=== PATIENT | male | born 1970 | race Caucasian/White ===

== ENCOUNTER → 2020-06-15 10:13 | Outpatient (CLI) | payer OTHER, SELFPAY ==
[2020-06-15 12:10] LABS: Add Manual Diff / Slide Review NO; Basophils Absolute Auto 100 /uL (0-100); Basophils Percent Auto 1.7 % (0-2); Eosinophils Absolute Auto 100 /uL (0-450); Eosinophils Percent Auto 1.7 % (2-4); Hematocrit 40.2 % (41-53); Hemoglobin 13.3 g/dL (13.5-17.5); Lymphocytes Absolute Auto 1300 /uL (1100-4500); Lymphocytes Percent Auto 37.3 % (25-40); Mean Corpuscular HGB Conc 33.2 % (30-36); Mean Corpuscular Hemoglobin 29.4 PG (26-34); Mean Corpuscular Volume 88.6 fL (80-100); Monocytes Absolute Auto 300 /uL (0-900); Monocytes Percent Auto 9.7 % (3-14); Neutrophils Absolute Auto 1700 /uL (1500-7000); Neutrophils Percent Auto 49.6 % (50-75); Platelet Count 195 X10^3/uL (150-400); Red Blood Cell Count 4.54 X10^6/uL (4.5-5.9); Red Cell Distribution Width 13.4 % (11.6-14.8); White Blood Cell Count 3.4 X10^3/uL (4.5-11.0)
[2020-06-15 12:19] LABS: Hemoglobin A1C% w Est Avg Glu 5.5 % (4.0-6.0)
[2020-06-15 12:35] LABS: Alanine Aminotransferase 34 IU/L (<50); Albumin 4.3 g/dL (3.5-5.0); Albumin Globulin Ratio 1.3 (1.0-2.8); Alkaline Phosphatase 69 U/L (38-126); Aspartate Aminotransferase 39 IU/L (17-59); BUN Creatinine Ratio 17.2 (6-22); Bilirubin Total 0.3 mg/dL (0.2-1.3); Blood Urea Nitrogen 15 mg/dL (9-20); Calcium 9.2 mg/dL (8.4-10.2); Carbon Dioxide 32 mmol/L (22-32); Chloride 104 mmol/L (98-107); Cholesterol 202 mg/dL (140-199); Estimated Glomerular Filt Rate > 60.0 mL/min (>60); Globulin 3.4 g/dL (1.7-4.1); Glucose 101 mg/dL (70-100); HDL Cholesterol 45 mg/dL (40-60); HEMOLYSIS < 15 (0-50); LDL Cholesterol Calculated 126 mg/dL (<100); Potassium 4.6 mmol/L (3.4-5.1); Sodium 140 mmol/L (137-145); Total Protein 7.7 g/dL (6.3-8.2); Triglycerides 155 mg/dL (35-150)
[2020-06-15 13:17] LABS: TSH w/ Reflex to FT4 1.23 uIU/mL (0.47-4.68)
== END ==
PROVIDERS: PCP Family Medicine; Referring Provider Family Medicine; Visit Provider Family Medicine
DX: Z00.00 Encounter for general adult medical examination without abnormal findings (principal); E66.9 Obesity, unspecified; Z12.5 Encounter for screening for malignant neoplasm of prostate
CPT/HCPCS: 36415; 80053; 80061; 83036; 84153; 84443; 85025

== ENCOUNTER → 2021-04-02 08:04 | Outpatient (CLI) | payer OTHER, SELFPAY ==
[2021-04-02 09:23] LABS: Add Manual Diff / Slide Review NO; Basophils Absolute Auto 100 /uL (0-100); Basophils Percent Auto 1.7 % (0-2); Eosinophils Absolute Auto 100 /uL (0-450); Eosinophils Percent Auto 2.2 % (2-4); Hematocrit 39.3 % (41-53); Hemoglobin 13.1 g/dL (13.5-17.5); Lymphocytes Absolute Auto 1700 /uL (1100-4500); Mean Corpuscular HGB Conc 33.3 % (30-36); Mean Corpuscular Hemoglobin 30.2 PG (26-34); Mean Corpuscular Volume 90.6 fL (80-100); Monocytes Absolute Auto 300 /uL (0-900); Monocytes Percent Auto 6.8 % (3-14); Neutrophils Absolute Auto 2500 /uL (1500-7000); Neutrophils Percent Auto 53.3 % (50-75); Platelet Count 194 X10^3/uL (150-400); Red Blood Cell Count 4.34 X10^6/uL (4.5-5.9); Red Cell Distribution Width 13.5 % (11.6-14.8); White Blood Cell Count 4.7 X10^3/uL (4.5-11.0)
[2021-04-02 09:26] LABS: Alanine Aminotransferase 25 IU/L (<50); Albumin 4.1 g/dL (3.5-5.0); Albumin Globulin Ratio 1.5 (1.0-2.8); Alkaline Phosphatase 65 U/L (38-126); Aspartate Aminotransferase 30 IU/L (17-59); BUN Creatinine Ratio 20.9 (6-22); Bilirubin Total 0.3 mg/dL (0.2-1.3); Blood Urea Nitrogen 19 mg/dL (9-20); Calcium 9.1 mg/dL (8.4-10.2); Carbon Dioxide 31 mmol/L (22-32); Chloride 102 mmol/L (98-107); Estimated Glomerular Filt Rate > 60.0 mL/min (>60); Globulin 2.7 g/dL (1.7-4.1); Glucose 103 mg/dL (70-100); HEMOLYSIS < 15 (0-50); Iron 53 ug/dL (49-181); Potassium 4.6 mmol/L (3.4-5.1); Sodium 139 mmol/L (137-145); Total Protein 6.8 g/dL (6.3-8.2)
[2021-04-02 09:40] LABS: Percent Iron Saturation 17 % (20-50); Total Iron Binding Capacity 309 ug/dL (261-462); Transferrin 255 mg/dL (206-381)
== END ==
PROVIDERS: PCP Family Medicine; Referring Provider Family Medicine; Visit Provider Family Medicine
DX: Z00.00 Encounter for general adult medical examination without abnormal findings (principal); D64.9 Anemia, unspecified; E78.5 Hyperlipidemia, unspecified
CPT/HCPCS: 36415; 80053; 83540; 83550; 85025

== ENCOUNTER → 2021-11-27 07:01 | Outpatient (CLI) | payer BC, SELFPAY ==
[2021-11-27 08:05] LABS: Add Manual Diff / Slide Review NO; Basophils Absolute Auto 100 /uL (0-100); Basophils Percent Auto 1.3 % (0-2); Eosinophils Absolute Auto 100 /uL (0-450); Hematocrit 41.8 % (41-53); Hemoglobin 14.1 g/dL (13.5-17.5); Lymphocytes Absolute Auto 1900 /uL (1100-4500); Lymphocytes Percent Auto 39.7 % (25-40); Mean Corpuscular HGB Conc 33.9 % (30-36); Mean Corpuscular Hemoglobin 30.3 PG (26-34); Mean Corpuscular Volume 89.5 fL (80-100); Monocytes Absolute Auto 400 /uL (0-900); Monocytes Percent Auto 8.1 % (3-14); Neutrophils Absolute Auto 2400 /uL (1500-7000); Neutrophils Percent Auto 48.9 % (50-75); Platelet Count 178 X10^3/uL (150-400); Red Blood Cell Count 4.67 X10^6/uL (4.5-5.9); Red Cell Distribution Width 13.5 % (11.6-14.8); White Blood Cell Count 4.8 X10^3/uL (4.5-11.0)
[2021-11-27 08:12] LABS: HEMOLYSIS < 15 (0-50); Iron 92 ug/dL (49-181)
[2021-11-27 08:15] LABS: Hemoglobin A1C% w Est Avg Glu 5.3 % (4.0-6.0)
[2021-11-27 08:16] LABS: Alanine Aminotransferase 27 IU/L (<50); Albumin 4.4 g/dL (3.5-5.0); Albumin Globulin Ratio 1.5 (1.0-2.8); Alkaline Phosphatase 53 U/L (38-126); Aspartate Aminotransferase 32 IU/L (17-59); BUN Creatinine Ratio 17.3 (6-22); Bilirubin Total 0.4 mg/dL (0.2-1.3); Blood Urea Nitrogen 17 mg/dL (9-20); Calcium 8.8 mg/dL (8.4-10.2); Carbon Dioxide 27 mmol/L (22-32); Chloride 107 mmol/L (98-107); Cholesterol 200 mg/dL (140-199); Estimated Glomerular Filt Rate > 60 mL/min (>60); Glucose 122 mg/dL (70-100); HDL Cholesterol 56 mg/dL (40-60); HEMOLYSIS < 15 (0-50); LDL Cholesterol Calculated 120 mg/dL (<100); Potassium 4.2 mmol/L (3.4-5.1); Sodium 139 mmol/L (137-145); Total Protein 7.4 g/dL (6.3-8.2); Triglycerides 118 mg/dL (35-150)
[2021-11-27 08:25] LABS: Percent Iron Saturation 29 % (20-50); Total Iron Binding Capacity 316 ug/dL (261-462); Transferrin 223 mg/dL (206-381)
== END ==
PROVIDERS: PCP Family Medicine; Referring Provider Family Medicine; Visit Provider Family Medicine
DX: Z00.00 Encounter for general adult medical examination without abnormal findings (principal); E66.9 Obesity, unspecified; E78.5 Hyperlipidemia, unspecified; R73.03 Prediabetes
CPT/HCPCS: 36415; 80053; 80061; 83036; 83540; 83550; 85025

== ENCOUNTER → 2022-01-27 11:59 | Outpatient (CLI) | payer BC, SELFPAY ==
[2022-01-27 14:29] LABS: COVID19 -Nasal RAPID Negative (Negative)
== END ==
PROVIDERS: PCP Family Medicine; Visit Provider Surgery
DX: Z01.812 Encounter for preprocedural laboratory examination (principal); Z20.822 Contact with and (suspected) exposure to COVID-19
CPT/HCPCS: 87635; C9803

== ENCOUNTER 2022-01-28 08:59 | Day surgery (SDC) | payer BC, SELFPAY ==
[2022-01-28 09:12] VITALS: BP 136/86; PULSE 57; RESP 16; TEMP 36.4; O2SAT 100; BMI 36.3
[2022-01-28] MEDS: LACTATED RINGERS 1,000 ML 200 ML IV (09:27)
--- NOTE | 2022-01-28 10:11 | PM.HP.1 ---
History of Present Illness History of Present Illness Date Patient Seen: 01/28/22 Time Patient Seen: 10:12 Chief complaint: SCREENING COLONOSCOPY Narrative: The patient presents for colorectal screening. They have never had any previous examination for such. No personal or family history of colon cancer. On further history denies any recent gastrointestinal symptoms. No nausea, vomiting, abdominal pain, loss of appetite, unexplained weight loss, change in bowel habits, diarrhea, constipation, melena, hematochezia, or bright red blood per rectum. Patient History Medical History Anemia Hyperglycemia Hyperlipidemia Obesity (BMI 30.0-34.9) Sleep apnea Well adult exam Surgical History [place] teeth removed Family & Social History Family History Mother Cancer Social History: household members spouse Tobacco & Substance use: Smoking Status Never smoker alcohol intake current alcohol intake frequency a few times a week Substance Use Type does not use Meds Home Medications and Allergies Home Medications Medication Instructions Recorded Confirmed Type sodium,potassium,mag sulfates 17.5 See Rx Instructions PO .COMPLEX 01/15/22 Rx gram-3.13 gram-1.6 gram oral soln #354 mL (Suprep Bowel Prep Kit) ergocalciferol (vitamin D2) 10 mcg 10 mcg PO DAILY 01/28/22 01/28/22 History (400 unit) tablet ferrous sulfate 325 mg (65 mg 325 mg PO DAILY 01/28/22 01/28/22 History iron) tablet (Iron (ferrous sulfate)) fiber cap PO 01/28/22 History glucosamine sulfate 750 mg tablet 1,500 mg PO DAILY 01/28/22 01/28/22 History lactobacillus combination no.4 3 01/28/22 History billion cell capsule (Probiotic) magnesium chloride 64 mg 64 mg PO DAILY 01/28/22 01/28/22 History (magnesium chloride) tablet,delayed release (Mag 64) multivitamin 1 tab PO DAILY 01/28/22 01/28/22 History omega-3 fatty acids PO 01/28/22 History Allergies Allergy/AdvReac Type Severity Reaction Status Date / Time No Known Drug Allergies Allergy Verified 01/28/22 09:42 Exam Vital Signs (past 8 hours): - 01/28/22 09:12 Temperature 97.6 F Pulse Rate 57 L Respiratory Rate 16 Blood Pressure 136/86 Pulse Oximetry 100 Oxygen Delivery Method Room Air Oxygen Delivery Method Room Air Narrative Exam Narrative: General adult male alert oriented no acute distress Chest nonlabored respirations Abdomen soft nontender nondistended Assessment & Plan Assessment & Plan narrative: The patient requires colorectal screening and colonoscopy is recommended. Technical details were discussed. Risks, benefits, alternatives explained. Risks including but not limited to myocardial infarction, aspiration, bleeding, pain, missed lesion, incomplete examination, need for further radiographic studies, colonic perforation, and need for major abdominal surgery were discussed. All questions were answered to their satisfaction, and they are in agreement with this plan. Time Spent With Patient Critical Care time: I spent a total of [] minutes of critical care time on this patient's care today; this time is exclusive of procedural time.
[2022-01-28 10:12] VITALS: BMI 36.3
[2022-01-28] MEDS: fentaNYL 250 MCG/5 ML INJ 100 MCG IV (10:28)
[2022-01-28] MEDS: MIDAZOLAM 5 MG/5 ML VIAL IV (10:28)
--- NOTE | 2022-01-28 10:40 | PM.OP.COLON ---
Operative Date/Time/Diagnoses Date of procedure: 01/28/22 Time of procedure: 10:41 Pre-op diagnosis: Screening colonoscopy Post-op diagnosis: same Procedure & Clinicians Study performed: Colonoscopy Same procedure as scheduled: Yes Indications: Screening Surgeon: Ramses Jackson Procedure Notes Procedure in detail: Medications: Conscious sedation using 5 mg IV midazolam and 100 mcg IV of fentanyl The history and physical was performed/updated and the patient is ASA class is 2. The procedure was discussed in detail with the patient. Potential risks complications including infection, bleeding, missed diagnosis, perforation, need for surgery, and were explained. Their questions were answered and informed consent was obtained. Patient was brought to the procedure room and placed standard monitoring equipment. The patient's vital signs were monitored continuously throughout the entire procedure. Prior to starting time-out was performed. The patient was placed in the left lateral recumbent position. Procedural sedation was administered. Examination began with a thorough inspection of the perianal area there was no evidence of fissures, fistulae, external hemorrhoids or cutaneous malignancy. The colonoscopy scope was then placed into the anal canal and was advanced to the cecum, which was identified by the ileocecal valve, the appendiceal orifice and the confluence of the taenia. The scope was then slowly withdrawn examining colon thoroughly in all directions, irrigating it of any residual stool. FINDINGS 1. Normal healthy colon 2. No masses or polyps The patient tolerated the procedure well. They will be discharged once criteria are met. The prep was of good/excellent quality. The withdrawl time was 7 minutes. The sedation time was 14 minutes. Specimen(s): none sent Complications: none Impression: Normal colonoscopy Post-procedure Recommendations: Colonoscopy in 10 years Disposition: same day surgery
[2022-01-28 10:46] VITALS: BP 108/68; PULSE 48; RESP 13; TEMP 36.4; O2SAT 94
--- NOTE | 2022-01-28 10:47 | PM.PREOP ---
Pre-operative Note Interval Note History & Physical reviewed/Exam performed by Physician: Yes Changes to H&P: No
[2022-01-28 10:53] VITALS: BP 104/71; PULSE 65; RESP 17; O2SAT 94
[2022-01-28 10:56] VITALS: BP 104/68; PULSE 60; RESP 14; TEMP 36.6; O2SAT 96
[2022-01-28 10:58] VITALS: BP 104/68; PULSE 60; RESP 16; TEMP 36.4; O2SAT 96
--- NOTE | 2022-01-28 10:58 | SUR.PHASEII ---
Pt to [facility] in [facility]. SBAR.
[2022-01-28 11:04] VITALS: BP 100/70; PULSE 53; RESP 16; O2SAT 96
== END 2022-01-28 11:13 | disposition home or self-care (01) ==
PROVIDERS: PCP Family Medicine; Referring Provider Surgery; Visit Provider Surgery
PROC: 0DJD8ZZ Inspection of Lower Intestinal Tract, Via Natural or Artificial Opening Endoscopic (ICD-10-PCS; CPT 45378; principal; 2022-01-28 10:00)
DX: Z12.11 Encounter for screening for malignant neoplasm of colon (principal); D64.9 Anemia, unspecified; E78.5 Hyperlipidemia, unspecified; E66.9 Obesity, unspecified; G47.30 Sleep apnea, unspecified; Z68.36 Body mass index [BMI] 36.0-36.9, adult
CPT/HCPCS: G0121; 99152; J2250; J3010

== ENCOUNTER 2022-07-20 15:10 | Emergency (ER) | payer BC, SELFPAY ==
[2022-07-20 15:16] VITALS: BP 185/95; PULSE 72; RESP 18; TEMP 36.6; O2SAT 99; BMI 36.9
--- NOTE | 2022-07-20 15:23 | DI.RAD.S_ITS ---
PROCEDURE: XR CHEST 1V INDICATIONS: chest pain TECHNIQUE: One view of the chest was acquired. COMPARISON: None. FINDINGS: Surgical changes and devices: None. Lungs and pleura: Lungs are clear. No pleural effusions or pneumothorax. Mediastinum: Mediastinal contours appear normal. Heart size is normal. Bones and chest wall: No suspicious bony lesions. Overlying soft tissues appear unremarkable. IMPRESSION: No acute cardiopulmonary findings Approved by: Brian Grey M.D. on 07/20/2022 at 15:40
[2022-07-20 15:41] LABS: Add Manual Diff / Slide Review NO; Basophils Absolute Auto 100 /uL (0-100); Basophils Percent Auto 1.4 % (0-2); Eosinophils Absolute Auto 0 /uL (0-450); Eosinophils Percent Auto 0.5 % (2-4); Hematocrit 41.3 % (41-53); Hemoglobin 13.9 g/dL (13.5-17.5); Lymphocytes Absolute Auto 1800 /uL (1100-4500); Lymphocytes Percent Auto 25.1 % (25-40); Mean Corpuscular HGB Conc 33.5 % (30-36); Mean Corpuscular Hemoglobin 29.8 PG (26-34); Mean Corpuscular Volume 88.9 fL (80-100); Monocytes Absolute Auto 400 /uL (0-900); Monocytes Percent Auto 5.1 % (3-14); Neutrophils Absolute Auto 4700 /uL (1500-7000); Neutrophils Percent Auto 67.9 % (50-75); Platelet Count 207 X10^3/uL (150-400); Red Blood Cell Count 4.65 X10^6/uL (4.5-5.9); Red Cell Distribution Width 13.5 % (11.6-14.8)
[2022-07-20 15:45] LABS: Prothrombin Time 11.8 SECONDS (10.1-12.7)
[2022-07-20 15:48] LABS: PTT Partial Thromboplastin Tim 33 SECONDS (26-36)
[2022-07-20 15:50] LABS: Alanine Aminotransferase 43 IU/L (<50); Albumin 4.5 g/dL (3.5-5.0); Albumin Globulin Ratio 1.3 (1.0-2.8); Alkaline Phosphatase 65 U/L (38-126); Aspartate Aminotransferase 40 IU/L (17-59); BUN Creatinine Ratio 12.2 (6-22); Bilirubin Total 0.4 mg/dL (0.2-1.3); Blood Urea Nitrogen 11 mg/dL (9-20); Calcium 9.1 mg/dL (8.4-10.2); Carbon Dioxide 27 mmol/L (22-32); Chloride 104 mmol/L (98-107); Creatine Kinase 275 U/L (55-170); Estimated Glomerular Filt Rate > 60 mL/min (>60); Globulin 3.6 g/dL (1.7-4.1); Glucose 92 mg/dL (70-100); HEMOLYSIS < 15 (0-50); Lipase 57 U/L (23-300); Magnesium 2.2 mg/dL (1.6-2.3); Potassium 3.9 mmol/L (3.4-5.1); Sodium 144 mmol/L (137-145); Total Protein 8.1 g/dL (6.3-8.2)
[2022-07-20 16:01] VITALS: O2SAT 99
[2022-07-20 16:01] LABS: Troponin I < 0.012 ng/mL (0.01-0.034)
[2022-07-20] MEDS: ASPIRIN 81 MG CHEW TAB 324 MG PO (16:02)
[2022-07-20 16:04] VITALS: BP 155/79; PULSE 73; O2SAT 99
[2022-07-20 16:05] LABS: CKMB % Relative Index 0.3 % (1.5-5.0)
[2022-07-20 16:28] LABS: COVID19 -Nasal RAPID Negative (Negative)
[2022-07-20 16:30] VITALS: BP 127/75; PULSE 56; RESP 16; O2SAT 98
[2022-07-20 17:00] VITALS: BP 114/71; PULSE 57; RESP 16; O2SAT 99
--- NOTE | 2022-07-20 17:18 | ED.CHESTPAIN ---
HPI - Chest Pain <Olive Sanchez EEO OFFICER - Last Filed: 07/20/22 17:56> General Chief Complaint: Chest Pain Stated Complaint: tightness and chest pain Time Seen by Provider: 07/20/22 17:01 Source: patient Mode of arrival: Ambulatory History of Present Illness HPI narrative: This is a 52-year-old male with history of hyperlipidemia, sleep apnea and remote history of epigastric pain/gastric ulcer who presents to the emergency department today with upper respiratory infection symptoms since 07/06/2022, complains of substernal dull aching and states this is similar to heartburn and GERD symptoms he has had in the past. Endorses that this has been a stressful year for him, states he recently started omeprazole 20 mg daily for a 15 day course 2 days ago. States that it started to help but he still has symptoms. He denies associated symptoms of shortness of breath, difficulty catching his breath. He has a history of hyperlipidemia but denies any history of hypertension, blood clots, heart or lung issues, weakness, vomiting, sweating, stool changes, black stools, denies palpitations or dizziness. Related Data Home Medications Medication Instructions Recorded Confirmed ergocalciferol (vitamin D2) 10 mcg 10 mcg PO DAILY 01/28/22 01/28/22 (400 unit) tablet ferrous sulfate 325 mg (65 mg 325 mg PO DAILY 01/28/22 01/28/22 iron) tablet (Iron (ferrous sulfate)) fiber cap PO 01/28/22 glucosamine sulfate 750 mg tablet 1,500 mg PO DAILY 01/28/22 01/28/22 lactobacillus combination no.4 3 01/28/22 billion cell capsule (Probiotic) magnesium chloride 64 mg 64 mg PO DAILY 01/28/22 01/28/22 (magnesium chloride) tablet,delayed release (Mag 64) multivitamin 1 tab PO DAILY 01/28/22 01/28/22 omega-3 fatty acids PO 01/28/22 Previous Rx's Medication Instructions Recorded omeprazole 40 mg capsule,delayed 40 mg PO BID #60 caps 07/20/22 release sucralfate 1 gram tablet (Carafate) 1 g PO BID PRN epigastric pain #60 07/20/22 tabs Allergies Allergy/AdvReac Type Severity Reaction Status Date / Time No Known Drug Allergies Allergy Verified 07/20/22 15:23 Review of Systems <ROSHNI Livingston - Last Filed: 07/20/22 17:56> Review of Systems ROS Unobtainable: All systems reviewed & are unremarkable except as noted in HPI and below Patient History <ROSHNI Livingston - Last Filed: 07/20/22 17:56> Medical History Anemia Hyperglycemia Hyperlipidemia Obesity (BMI 30.0-34.9) Sleep apnea Well adult exam Surgical History [place] teeth removed Family History Mother Cancer Social History household members: spouse Smoking Status: Never smoker alcohol intake: current substance use type: does not use Smoking Status: Never smoker alcohol intake frequency: a few times a week Substance Use Type: does not use Exam <ROSHNI Livingston - Last Filed: 07/20/22 17:56> Narrative Exam Narrative: Reviewed vitals signs and nursing notes. General: cooperative, comfortable, in no acute distress, well groomed HEENT: symmetrical facial expressions, moist mucous membranes, EOMI, PERRLA bilaterally Cardiovascular: regular rate and rhythm, no peripheral edema, warm extremities, afebrile without tachycardia, S1-S2 without murmur, rub, gallop or irregular beat, bilateral radial pulses are 2+ without difference Patient was initially hypertensive however currently is blood sugar is 119/70 Respiratory: normal effort, able to speak in complete sentences, without wheezing, stridor, or abnormal breath sounds. No retractions or tachypnea. GI: abdomen soft, nontender to palpation, nondistended, without masses, rebound tenderness or exquisite tenderness with exam. No tenderness to his epigastrium with palpation, no rebound tenderness, without flank pain bilaterally MSK: moves all extremities, neurovascularly intact, no weakness, normal tone Skin: brisk capillary refill, without pallor or erythema Neuro: normal speech and cognition, A&O x3, ambulatory, clear speech Psych: mental status is grossly normal, congruent mood, normal affect, pleasant and cooperative Initial Vital Signs Initial Vital Signs: Vital Signs Temperature 97.9 F 07/20/22 15:16 Pulse Rate 72 07/20/22 15:16 Respiratory Rate 18 07/20/22 15:16 Blood Pressure 185/95 H 07/20/22 15:16 Pulse Oximetry 99 07/20/22 15:16 Oxygen Delivery Method 07/20/22 15:16 <Danii Elam MD - Last Filed: 07/20/22 18:58> Initial Vital Signs Initial Vital Signs: Vital Signs Temperature 97.9 F 07/20/22 15:16 Pulse Rate 72 07/20/22 15:16 Respiratory Rate 18 07/20/22 15:16 Blood Pressure 185/95 H 07/20/22 15:16 Pulse Oximetry 99 07/20/22 15:16 Oxygen Delivery Method 07/20/22 15:16 Scores <ROSHNI Livingston - Last Filed: 07/20/22 17:56> HEART Score Heart Score history: Slightly Suspicious Heart Score EKG: Normal Heart Score Age: 45-64 years old Heart Score risk factors: 1-2 risk factors Heart Score troponin: < or = to normal limit Heart Score Total: 2 PERC Score Age greater than or equal to 50 years: Yes Heart rate greater than or equal to 100 bpm: No Room Air O2 Sat less than 95%: No Unilateral leg swelling: No Recent trauma or surgery: No Hemoptysis: No Prior PE or DVT: No Hormone Use: No Total PERC Score: 1 Wells' Criteria for PE Clinical signs and symptoms of DVT: No PE is #1 Dx or equally likely: No Heart rate > 100: No Immobilization at least 3 days or surg in previous 4 weeks: No History of PE or DVT: No Hemoptysis: No Malignancy w/Treatment within 6 months or palliative: No Wells' PE Score total: 0 <Danii Elam MD - Last Filed: 07/20/22 18:58> HEART Score Heart Score Total: 2 PERC Score Total PERC Score: 1 Wells' Criteria for PE Wells' PE Score total: 0 Course <ROSHNI Livingston - Last Filed: 07/20/22 17:56> Orders Ordered: ED Orders 07/20/22 15:23 XR chest 1V Stat 07/20/22 15:24 EKG-12 Lead Stat 07/20/22 15:30 Complete Blood Count AUTO DIFF Stat Comprehensive Metabolic Panel Stat D Dimer Stat Lipase Stat Magnesium Stat Partial Thromboplastin Time Stat Prothrombin Time INR Stat Troponin & CK Cardiac Panel Stat 07/20/22 16:11 COVID19 -Nasal RAPID/Pre-Proc Stat 07/20/22 17:42 Covid-19 + FLU A/B + RSV - PCR Stat Discontinued Medications Aspirin (Aspirin 81 Mg Chew Tab) 324 mg PO NOW ONE Stop: 07/20/22 15:24 Last Admin: 07/20/22 16:02 Dose: 324 mg Documented By: GEORGE Al Hydrox/Mg Hydrox/Simethicone 20 ml/ Lidocaine HCl 15 ml 0 ml PO NOW ONE Stop: 07/20/22 17:03 Last Admin: 07/20/22 17:30 Dose: 35 ml Documented By: GEORGE Pantoprazole Sodium (Pantoprazole 40 Mg Vial) 80 mg IV NOW ONE Stop: 07/20/22 17:03 Last Admin: 07/20/22 17:30 Dose: 80 mg Documented By: GEORGE Vital Signs Vital signs: Vital Signs - 8 hr 07/20/22 15:16 07/20/22 16:01 07/20/22 16:04 Temperature 97.9 F Pulse Rate 72 73 Respiratory Rate 18 Blood Pressure 185/95 H Pulse Oximetry 99 99 99 Oxygen Delivery Method Room Air 07/20/22 16:04 07/20/22 16:30 07/20/22 16:30 Temperature Pulse Rate 56 L Respiratory Rate 16 Blood Pressure 155/79 H 127/75 Pulse Oximetry 98 Oxygen Delivery Method 07/20/22 17:00 07/20/22 17:00 07/20/22 17:30 Temperature Pulse Rate 57 L Respiratory Rate 16 Blood Pressure 114/71 119/70 Pulse Oximetry 99 Oxygen Delivery Method 07/20/22 17:30 Temperature Pulse Rate 55 L Respiratory Rate 16 Blood Pressure Pulse Oximetry 98 Oxygen Delivery Method <Danii Elam MD - Last Filed: 07/20/22 18:58> Orders Ordered: ED Orders 07/20/22 15:23 XR chest 1V Stat 07/20/22 15:24 EKG-12 Lead Stat 07/20/22 15:30 Complete Blood Count AUTO DIFF Stat Comprehensive Metabolic Panel Stat D Dimer Stat Lipase Stat Magnesium Stat Partial Thromboplastin Time Stat Prothrombin Time INR Stat Troponin & CK Cardiac Panel Stat 07/20/22 16:11 COVID19 -Nasal RAPID/Pre-Proc Stat 07/20/22 17:42 Covid-19 + FLU A/B + RSV - PCR Stat Discontinued Medications Aspirin (Aspirin 81 Mg Chew Tab) 324 mg PO NOW ONE Stop: 07/20/22 15:24 Last Admin: 07/20/22 16:02 Dose: 324 mg Documented By: GEORGE Al Hydrox/Mg Hydrox/Simethicone 20 ml/ Lidocaine HCl 15 ml 0 ml PO NOW ONE Stop: 07/20/22 17:03 Last Admin: 07/20/22 17:30 Dose: 35 ml Documented By: GEORGE Pantoprazole Sodium (Pantoprazole 40 Mg Vial) 80 mg IV NOW ONE Stop: 07/20/22 17:03 Last Admin: 07/20/22 17:30 Dose: 80 mg Documented By: GEORGE Vital Signs Vital signs: Vital Signs - 8 hr 07/20/22 15:16 07/20/22 16:01 07/20/22 16:04 Temperature 97.9 F Pulse Rate 72 73 Respiratory Rate 18 Blood Pressure 185/95 H Pulse Oximetry 99 99 99 Oxygen Delivery Method Room Air 07/20/22 16:04 07/20/22 16:30 07/20/22 16:30 Temperature Pulse Rate 56 L Respiratory Rate 16 Blood Pressure 155/79 H 127/75 Pulse Oximetry 98 Oxygen Delivery Method 07/20/22 17:00 07/20/22 17:00 07/20/22 17:30 Temperature Pulse Rate 57 L Respiratory Rate 16 Blood Pressure 114/71 119/70 Pulse Oximetry 99 Oxygen Delivery Method 07/20/22 17:30 Temperature Pulse Rate 55 L Respiratory Rate 16 Blood Pressure Pulse Oximetry 98 Oxygen Delivery Method MDM - Chest Pain <ROSHNI Livingston - Last Filed: 07/20/22 17:56> Lab Data Result diagrams: 07/20/22 15:30 07/20/22 15:30 Labs: Lab Results 07/20/22 07/20/22 07/20/22 Range/Units 15:30 15:30 15:30 WBC 7.0 (4.5-11.0) X10^3/uL RBC 4.65 (4.5-5.9) X10^6/uL Hgb 13.9 (13.5-17.5) g/dL Hct 41.3 (41-53) % MCV 88.9 (80-100) fL MCH 29.8 (26-34) PG MCHC 33.5 (30-36) % RDW 13.5 (11.6-14.8) % Plt Count 207 (150-400) X10^3/uL Neut % (Auto) 67.9 (50-75) % Lymph % (Auto) 25.1 (25-40) % [place] % (Auto) 5.1 (3-14) % Eos % (Auto) 0.5 L (2-4) % Baso % (Auto) 1.4 (0-2) % Neut # (Auto) 4700 (9229-0767) /uL Lymph # (Auto) 1800 (6440-2530) /uL [place] # (Auto) 400 (0-900) /uL Eos # (Auto) 0 (0-450) /uL Baso # (Auto) 100 (0-100) /uL PT 11.8 (10.1-12.7) SECONDS INR 1.0 (0.9-1.3) APTT 33 (26-36) SECONDS D-Dimer (<500) ng/ml Sodium 144 (137-145) mmol/L Potassium 3.9 (3.4-5.1) mmol/L Chloride 104 (98-107) mmol/L Carbon Dioxide 27 (22-32) mmol/L BUN 11 (9-20) mg/dL Creatinine 0.90 (0.66-1.25) mg/dL Estimated GFR > 60 (>60) mL/min BUN/Creatinine Ratio 12.2 (6-22) Glucose 92 (70-100) mg/dL Calcium 9.1 (8.4-10.2) mg/dL Magnesium 2.2 (1.6-2.3) mg/dL Total Bilirubin 0.4 (0.2-1.3) mg/dL AST 40 (17-59) IU/L ALT 43 (<50) IU/L Alkaline Phosphatase 65 (38-126) U/L Total Creatine Kinase 275 H (55-170) U/L CK-MB (CK-2) 0.90 (<2.37) ng/mL CK-MB (CK-2) Rel Index 0.3 L (1.5-5.0) % Troponin I < 0.012 (0.01-0.034) ng/mL Total Protein 8.1 (6.3-8.2) g/dL Albumin 4.5 (3.5-5.0) g/dL Globulin 3.6 (1.7-4.1) g/dL Albumin/Globulin Ratio 1.3 (1.0-2.8) Lipase 57 (23-300) U/L SARS-CoV-2 (PCR) (Negative) Influenza A (RT-PCR) (NEGATIVE) Influenza B (RT-PCR) (NEGATIVE) RSV (PCR) (Negative) 07/20/22 07/20/22 07/20/22 Range/Units 15:30 16:11 17:42 WBC (4.5-11.0) X10^3/uL RBC (4.5-5.9) X10^6/uL Hgb (13.5-17.5) g/dL Hct (41-53) % MCV (80-100) fL MCH (26-34) PG MCHC (30-36) % RDW (11.6-14.8) % Plt Count (150-400) X10^3/uL Neut % (Auto) (50-75) % Lymph % (Auto) (25-40) % [place] % (Auto) (3-14) % Eos % (Auto) (2-4) % Baso % (Auto) (0-2) % Neut # (Auto) (0967-1979) /uL Lymph # (Auto) (9191-2193) /uL [place] # (Auto) (0-900) /uL Eos # (Auto) (0-450) /uL Baso # (Auto) (0-100) /uL PT (10.1-12.7) SECONDS INR (0.9-1.3) APTT (26-36) SECONDS D-Dimer 405 (<500) ng/ml Sodium (137-145) mmol/L Potassium (3.4-5.1) mmol/L Chloride (98-107) mmol/L Carbon Dioxide (22-32) mmol/L BUN (9-20) mg/dL Creatinine (0.66-1.25) mg/dL Estimated GFR (>60) mL/min BUN/Creatinine Ratio (6-22) Glucose (70-100) mg/dL Calcium (8.4-10.2) mg/dL Magnesium (1.6-2.3) mg/dL Total Bilirubin (0.2-1.3) mg/dL AST (17-59) IU/L ALT (<50) IU/L Alkaline Phosphatase (38-126) U/L Total Creatine Kinase (55-170) U/L CK-MB (CK-2) (<2.37) ng/mL CK-MB (CK-2) Rel Index (1.5-5.0) % Troponin I (0.01-0.034) ng/mL Total Protein (6.3-8.2) g/dL Albumin (3.5-5.0) g/dL Globulin (1.7-4.1) g/dL Albumin/Globulin Ratio (1.0-2.8) Lipase (23-300) U/L SARS-CoV-2 (PCR) Negative Negative (Negative) Influenza A (RT-PCR) Flu a negative (NEGATIVE) Influenza B (RT-PCR) Flu b negative (NEGATIVE) RSV (PCR) Negative (Negative) Urine Dip Bedside Urine Glucose Negative Bedside Urine Bilirubin - Negative Bedside Urine Ketone - Negative Urine Specific Richardson 1.010 Bedside Urine Occult Blood - Negative Bedside Urine pH 6.5 Bedside Urine Protein - Negative Bedside Urine Urobilinogen - Negative Bedside Urine Nitrite - Negative Bedside Urine Leukocytes - Negative Esterase MDM Narrative Medical decision making narrative: This is a 52-year-old male with PMH of hyperlipidemia, obesity, and sleep apnea and remote history epigastric pain/reflux who presents to the ED via POV with substernal chest pain and epigastric pain for the last 2-3 days. He denies any cardiac history, denies any blood clots, not anticoagulated, denies hypertension or arrhythmia. Denies family history of serious cardiac event at a young age. Independent history provided by patient. Differential diagnosis considered include: ACS, PE, aortic dissection, myocarditis, PUD/GERD, gastritis, costochondritis, pericarditis, myocarditis, CHF, STEMI, NSTEMI, unstable angina, viral syndrome, pneumothorax, and abdominal etiology such as gastritis, peptic ulcer disease or gastric ulcer, cholecystitis, pancreatis. The patient?s EKG, CMP, CBC, and Troponin and Chest XR ordered to evaluate the patient for ACS. I have independently interpreted their EKG which shows NSR, rate of 68, no ST changes, new arrhythmia, no STEMI, T wave inversions. I have independently reviewed the CXR and there is no mediastinal widening or effusion. CT did not reveal acute PE or dissection. Serial troponins were negative. Patient?s HEART Score =2 with 0.9-1.7% risk for MACE. Exam without evidence of volume overload, so doubt heart failure. EKG without signs of active ischemia. Given the timing of pain to ER presentation, single troponin 0, so doubt NSTEMI. Presentation not consistent with acute PE. Wells low risk, score 0 PERC 1, D Dimer: Not elevated at 405 HEART score of 2 Pneumothorax not visualized on chest xr, thoracic aortic dissection, pericarditis, tamponade, pneumonia (no infectious symptoms, clear chest xr), myocarditis recent respiratory illness but, neg trop and without EKG changes or arrhythmia.. My interpretation of the EKG revealed sinus rhythm without T-wave changes. NO PRIOR EKGS TO COMPARE TO. Review of medical records reveals no recent cardiac testing, cardiac cath, or recent chest imaging. On presentation, patient was without diaphoresis, has symmetric pulses, they are without shortness of breath or abnormal breath sounds. EKG demonstrates sinus rhythm with no acute ischemic changes. No pleuritic symptoms, recent history of extended travel/immobilization, cancer, or surgery. PERC of 1 with D-dimer of 405. Without tachycardia, hypoxia, increased work of breathing or persistent chest pain. GI cocktail was given in the emergency department and reduce patient's pain and symptoms by half. He was given 80 mg of IV Protonix, he appears well hydrated, without fever, chills, other systemic symptoms of illness. No evidence of pneumothorax on chest x-ray or exam. Pain is not described as tearing through to the back, CXR w/ no evidence of widened mediastinum, normal neuro exam, and equal pulses to bilateral upper and lower extremities; aortic dissection seems very unlikely. Neither clinical presentation, exam, or EKG seem c/w pericarditis or myocarditis. No abdominal pain or tenderness. Rest of labs reviewed and are unremarkable. Patient given aspirin here in the ED, as well as above-stated with some relief of symptoms. This is most likely gastrointestinal related, could be H pylori, could be gastric ulcer or duodenal ulcer however differential includes cardiac etiology as well. Patient's symptoms improved after GI cocktail, he is given 80 mg of IV Protonix, had recently started omeprazole trial and has follow-up with Dr. Nuñez, recommend upper endoscopy if symptoms persist. He is without bright red blood or melena stool, vomiting, or other systemic symptoms of illness. Patient is appropriate and amenable to discharge home. Vital signs are stable on repeat examination is unremarkable. Patient has been informed of results. Patient has been given strict return to ER precautions for any new or worsening symptoms. Patient understands to follow up closely with outpatient providers as instructed. Patient understands plan and agrees to discharge home. All questions and concerns answered at this time. <Danii Elam MD - Last Filed: 07/20/22 18:58> Lab Data Labs: Lab Results 07/20/22 07/20/22 07/20/22 Range/Units 15:30 15:30 15:30 WBC 7.0 (4.5-11.0) X10^3/uL RBC 4.65 (4.5-5.9) X10^6/uL Hgb 13.9 (13.5-17.5) g/dL Hct 41.3 (41-53) % MCV 88.9 (80-100) fL MCH 29.8 (26-34) PG MCHC 33.5 (30-36) % RDW 13.5 (11.6-14.8) % Plt Count 207 (150-400) X10^3/uL Neut % (Auto) 67.9 (50-75) % Lymph % (Auto) 25.1 (25-40) % [place] % (Auto) 5.1 (3-14) % Eos % (Auto) 0.5 L (2-4) % Baso % (Auto) 1.4 (0-2) % Neut # (Auto) 4700 (6820-8443) /uL Lymph # (Auto) 1800 (2643-9627) /uL [place] # (Auto) 400 (0-900) /uL Eos # (Auto) 0 (0-450) /uL Baso # (Auto) 100 (0-100) /uL PT 11.8 (10.1-12.7) SECONDS INR 1.0 (0.9-1.3) APTT 33 (26-36) SECONDS D-Dimer (<500) ng/ml Sodium 144 (137-145) mmol/L Potassium 3.9 (3.4-5.1) mmol/L Chloride 104 (98-107) mmol/L Carbon Dioxide 27 (22-32) mmol/L BUN 11 (9-20) mg/dL Creatinine 0.90 (0.66-1.25) mg/dL Estimated GFR > 60 (>60) mL/min BUN/Creatinine Ratio 12.2 (6-22) Glucose 92 (70-100) mg/dL Calcium 9.1 (8.4-10.2) mg/dL Magnesium 2.2 (1.6-2.3) mg/dL Total Bilirubin 0.4 (0.2-1.3) mg/dL AST 40 (17-59) IU/L ALT 43 (<50) IU/L Alkaline Phosphatase 65 (38-126) U/L Total Creatine Kinase 275 H (55-170) U/L CK-MB (CK-2) 0.90 (<2.37) ng/mL CK-MB (CK-2) Rel Index 0.3 L (1.5-5.0) % Troponin I < 0.012 (0.01-0.034) ng/mL Total Protein 8.1 (6.3-8.2) g/dL Albumin 4.5 (3.5-5.0) g/dL Globulin 3.6 (1.7-4.1) g/dL Albumin/Globulin Ratio 1.3 (1.0-2.8) Lipase 57 (23-300) U/L SARS-CoV-2 (PCR) (Negative) Influenza A (RT-PCR) (NEGATIVE) Influenza B (RT-PCR) (NEGATIVE) RSV (PCR) (Negative) 07/20/22 07/20/22 07/20/22 Range/Units 15:30 16:11 17:42 WBC (4.5-11.0) X10^3/uL RBC (4.5-5.9) X10^6/uL Hgb (13.5-17.5) g/dL Hct (41-53) % MCV (80-100) fL MCH (26-34) PG MCHC (30-36) % RDW (11.6-14.8) % Plt Count (150-400) X10^3/uL Neut % (Auto) (50-75) % Lymph % (Auto) (25-40) % [place] % (Auto) (3-14) % Eos % (Auto) (2-4) % Baso % (Auto) (0-2) % Neut # (Auto) (7839-2940) /uL Lymph # (Auto) (4826-1916) /uL [place] # (Auto) (0-900) /uL Eos # (Auto) (0-450) /uL Baso # (Auto) (0-100) /uL PT (10.1-12.7) SECONDS INR (0.9-1.3) APTT (26-36) SECONDS D-Dimer 405 (<500) ng/ml Sodium (137-145) mmol/L Potassium (3.4-5.1) mmol/L Chloride (98-107) mmol/L Carbon Dioxide (22-32) mmol/L BUN (9-20) mg/dL Creatinine (0.66-1.25) mg/dL Estimated GFR (>60) mL/min BUN/Creatinine Ratio (6-22) Glucose (70-100) mg/dL Calcium (8.4-10.2) mg/dL Magnesium (1.6-2.3) mg/dL Total Bilirubin (0.2-1.3) mg/dL AST (17-59) IU/L ALT (<50) IU/L Alkaline Phosphatase (38-126) U/L Total Creatine Kinase (55-170) U/L CK-MB (CK-2) (<2.37) ng/mL CK-MB (CK-2) Rel Index (1.5-5.0) % Troponin I (0.01-0.034) ng/mL Total Protein (6.3-8.2) g/dL Albumin (3.5-5.0) g/dL Globulin (1.7-4.1) g/dL Albumin/Globulin Ratio (1.0-2.8) Lipase (23-300) U/L SARS-CoV-2 (PCR) Negative Negative (Negative) Influenza A (RT-PCR) Flu a negative (NEGATIVE) Influenza B (RT-PCR) Flu b negative (NEGATIVE) RSV (PCR) Negative (Negative) Urine Dip Bedside Urine Glucose Negative Bedside Urine Bilirubin - Negative Bedside Urine Ketone - Negative Urine Specific Richardson 1.010 Bedside Urine Occult Blood - Negative Bedside Urine pH 6.5 Bedside Urine Protein - Negative Bedside Urine Urobilinogen - Negative Bedside Urine Nitrite - Negative Bedside Urine Leukocytes - Negative Esterase Discharge Plan Departure Patient Disposition: Home Clinical Impression: Heartburn Instructions: Avoiding Foods That Cause Heartburn, Heartburn -- Overview, GERD Diet Activity Restrictions/Additional Instructions: *You have been diagnosed with epigastric pain/substernal chest pain for the last 2 and half days with symptoms that sound similar to gastritis versus gastric ulcer versus other GERD complication. Please start omeprazole 40 mg b.i.d. and use Carafate up to 3 times daily as needed to help coat your stomach. Follow-up with Dr. Nuñez and see how your symptoms go. If you have worsening, I encourage you to have an upper endoscopy with [facility], you may need to have a referral from this from [facility] or you might be able to call and make this appointment. Please avoid aspirin, acidic foods, coffee, ibuprofen. Keep Maalox or Tums Handy and return if you develop chest pain with shortness of breath, fever, chills, difficulty breathing, weakness, vision changes or anything else significant. You are relatively low risk for an acute cardiac event, your workup today is reassuring that this is most likely not related to your heart. We will call you if the respiratory panel is positive for flu RSV or COVID. Please stay hydrated, follow-up with your providers, thank you for trusting us with your care. *What to do: *Please continue to take your regular medications as directed. [x ] New medication prescriptions sent to your pharmacy: [[facility]] [ ] New medication written as a paper prescription [ ] No new medications given *Please follow up with your primary care provider in 2-3 days, call for an appointment. Let them know you were seen in the Emergency Department and that we asked that you be seen for follow-up. We will electronically transmit a record of today's note if your PCP is in our system *If you do not have a primary care provider please contact [phone] to establish care with one of the [facility] primary care providers. *Return to Emergency Department if you should have any new, worsening, or concerning symptoms, such as [fever greater than 101F, chills, worsening pain, persistent vomiting or other bothersome symptoms]. Prescriptions: New omeprazole 40 mg capsule,delayed release(DR/EC) 40 mg PO BID Qty: 60 0RF Rx Instructions: Please take this twice a day until you follow-up sucralfate [Carafate] 1 gram tablet 1 g PO BID PRN (Reason: epigastric pain) Qty: 60 0RF No Action omega-3 fatty acids Capsule PO multivitamin Tablet 1 tab PO DAILY ferrous sulfate [Iron (ferrous sulfate)] 325 mg (65 mg iron) Tablet 325 mg PO DAILY Mag 64 64 mg Tablet,Delayed Release (Dr/Ec) 64 mg PO DAILY ergocalciferol (vitamin D2) 10 mcg (400 unit) Tablet 10 mcg PO DAILY fiber Capsule PO glucosamine sulfate 750 mg Tablet 1,500 mg PO DAILY Rx Instructions: administer with a meal Probiotic 3 billion cell Capsule Referrals: [facility] [Provider Group] Nick Nuñez DO [Primary Care Provider] - Stand Alone Forms: Patient Portal/API <Danii Elam MD - Last Filed: 07/20/22 18:58> Cosign ED Attending Cosignature Attestation: I was immediately available in the department for consultation throughout this patient's visit. I agree with documentation as above. Danii Elam MD
[2022-07-20 17:30] VITALS: BP 119/70; PULSE 55; RESP 16; O2SAT 98
[2022-07-20] MEDS: MAG HYDROX/ALUMINUM/SIMETH SUS 20 ML, LIDOCAINE VISCOUS 2% 15 ML PO (17:30)
[2022-07-20] MEDS: PANTOPRAZOLE 40 MG VIAL 80 MG IV (17:30)
[2022-07-20 17:38] LABS: D Dimer 405 ng/ml (<500)
[2022-07-20 18:27] LABS: Influenza A - CEPHEID Flu A NEGATIVE (NEGATIVE); Influenza B - CEPHEID Flu B NEGATIVE (NEGATIVE); Respiratory Syncytial Virus Negative (Negative)
[2022-07-20 18:28] LABS: COVID-19 CEPHEID 4-PLEX PCR Negative (Negative)
== END 2022-07-20 17:41 | disposition home or self-care (01) ==
PROVIDERS: Emergency Medicine; Emergency Provider Nurse Practitioner Critical Care Medicine; PCP Family Medicine
DX: R12 Heartburn (principal); Z20.822 Contact with and (suspected) exposure to COVID-19
CPT/HCPCS: 0241U; 36415; 71045; 80053; 81003; 82550; 82553; 83690; 83735; 84484; 85025; 85379; 85610; 85730; 87635; 93005; 93010; 96374; 99284; C9803; C9113

== ENCOUNTER → 2023-02-03 14:33 | Outpatient (CLI) | payer BC, SELFPAY ==
[2023-02-03 16:55] LABS: Blood Urea Nitrogen 13 mg/dL (9-20); Calcium 9.6 mg/dL (8.4-10.2); Carbon Dioxide 30 mmol/L (22-32); Chloride 101 mmol/L (98-107); Estimated Glomerular Filt Rate > 60 mL/min (>60); Glucose 92 mg/dL (70-100); HEMOLYSIS < 15 (0-50); Potassium 4.7 mmol/L (3.4-5.1); Sodium 140 mmol/L (137-145)
== END ==
PROVIDERS: PCP Family Medicine; Visit Provider Physician Assistant
DX: U07.1 COVID-19 (principal); Z79.899 Other long term (current) drug therapy
CPT/HCPCS: 80048

== ENCOUNTER → 2025-02-14 10:11 | Outpatient (CLI) | payer BC, SELFPAY ==
[2025-02-14 10:59] LABS: Add Manual Diff / Slide Review NO; Hematocrit 40.5 % (41-53); Hemoglobin 13.6 g/dL (13.5-17.5); Lymphocytes Absolute Auto 1600 /uL (1100-4500); Mean Corpuscular HGB Conc 33.6 % (30-36); Mean Corpuscular Hemoglobin 30.1 PG (26-34); Mean Corpuscular Volume 89.8 fL (80-100); Platelet Count 222 X10^3/uL (150-400)
[2025-02-14 11:09] LABS: Hemoglobin A1C% w Est Avg Glu 5.6 % (4.0-6.0)
[2025-02-14 11:25] LABS: Alanine Aminotransferase 33 IU/L (<50); Albumin 4.6 g/dL (3.5-5.0); Albumin Globulin Ratio 1.6 (1.0-2.8); Alkaline Phosphatase 76 U/L (38-126); Blood Urea Nitrogen 12 mg/dL (9-20); Calcium 9.5 mg/dL (8.4-10.2); Carbon Dioxide 26 mmol/L (22-32); Chloride 104 mmol/L (98-107); Estimated Glomerular Filt Rate > 60 mL/min (>60); Globulin 2.8 g/dL (1.7-4.1); Glucose 101 mg/dL (70-99); HEMOLYSIS < 15 (0-50); Potassium 4.5 mmol/L (3.4-5.1); Sodium 139 mmol/L (137-145); Total Protein 7.4 g/dL (6.3-8.2); Uric Acid 7.1 mg/dL (3.5-8.5)
[2025-02-14 11:54] LABS: Prostate Specific Antigen 1.14 ng/mL (0.10-4.00)
[2025-02-14 11:56] LABS: TSH w/ Reflex to FT4 1.73 uIU/mL (0.47-4.68)
== END ==
PROVIDERS: PCP Family Medicine; Referring Provider Family Medicine; Visit Provider Family Medicine
DX: R73.9 Hyperglycemia, unspecified (principal); E78.5 Hyperlipidemia, unspecified; D64.9 Anemia, unspecified; D50.9 Iron deficiency anemia, unspecified
CPT/HCPCS: 36415; 80053; 83036; 84153; 84443; 84550; 85025